=== PATIENT | female | born 1950 | race Caucasian/White ===

== ENCOUNTER → 2016-02-19 | Outpatient (CLI) | payer OTHER ==
--- NOTE | 2016-02-19 10:47 | MA ---
Screening Digital Mammogram With Tomosynthesis and iCAD Indication: Routine screening. Technique: Standard digital CC projections were obtained. Digital breast tomosynthesis was performed in the MLO projection with reconstruction at 1.0 mm slice thickness. Composite MLO views were recons tructed. This examination was processed by the iCAD computer-aided detection system. Comparison: November 2014, September 2013, August 2012, and February 2010. Breast density: Type B. Findings: CAD was reviewed. No suspicious microcalcifications, mass, or architectural distortion. Impression: Negative mammogram. BI-RADS 1. Recommendation: Routine screening is recommended in one year. [facility] will send a result letter to the patient. Negative mammography should not preclude additional workup of a clinically suspicious finding. The patient's information is entered into a reminder system with a target due date for her next mammo gram.
== END ==
LOC: FIMAGING 09:56
DX: Z12.31 Encounter for screening mammogram for malignant neoplasm of breast (principal)
CPT/HCPCS: G0202

== ENCOUNTER → 2016-02-20 | Outpatient (CLI) | payer OTHER ==
--- NOTE | 2016-02-20 14:49 | MR ---
MR Arteriogram of the [place] Clinical Indications: Right sided tinnitus in a 65-year-old female; evaluate for vascular abnormality . Comparison is made to the MRI of the brain performed November 22, 2015. Technique: A [id number] gradient echo technique was used for thin axial images at the skull base for evaluation of major vessels of the [place]. Three-dimensional technique was used with a 30-degree gradient echo flip angle and a traveling saturation band. Images were manipulated by the radiologist at the computer workstation. Findings: Major vessels of the [place] are adequately displayed, demonstrating no evidence of aneurysm, vascular malformation, flow-limiting stenosis, or occlusion. No abnormality is seen ref erable to the right temporal bone or right cerebellopontine angle. Review of the prior MRI of the bra in demonstrates normal appearance of the cerebellopontine angles bilaterally. The right internal emmanuel tory canal is well visualized and normal in appearance on the unenhanced MRI study. Impression: Negative MRA of the [place] with no abnormality identified to explain right-sarah ed tinnitus.
== END ==
LOC: FIMAGING 07:39
PROVIDERS: ATTEND Otolaryngology
DX: H93.11 Tinnitus, right ear (principal)

== ENCOUNTER → 2016-07-10 | Outpatient (CLI) | payer OTHER | LOC: BHFA 14:30 | PROVIDERS: ATTEND Internal Medicine Cardiovascular Disease | DX: I47.1 Supraventricular tachycardia (principal) ==

== ENCOUNTER → 2017-02-26 | Outpatient (CLI) | payer OTHER ==
[~2017-02-26] MED LIST: LIDOCAINE 1% 300 MG/30 ML SDV ONE
== END ==
LOC: EDSEX → EDBD → FIMAGING 07:23 → EDSEX 07:23
PROVIDERS: ATTEND Internal Medicine
DX: Z12.31 Encounter for screening mammogram for malignant neoplasm of breast (principal)

== ENCOUNTER → 2017-08-13 | Outpatient (CLI) | payer OTHER | DX: I47.1 Supraventricular tachycardia (principal); Z79.899 Other long term (current) drug therapy ==

== ENCOUNTER → 2018-01-24 | Outpatient (CLI) | payer OTHER | LOC: FIMAGING 15:11 | PROVIDERS: ATTEND Physical Medicine & Rehabilitation | DX: M50.321 Other cervical disc degeneration at C4-C5 level (principal); M50.322 Other cervical disc degeneration at C5-C6 level; M50.323 Other cervical disc degeneration at C6-C7 level; M99.71 Connective tissue and disc stenosis of intervertebral foramina of cervical region; M12.88 Other specific arthropathies, not elsewhere classified, other specified site; M48.02 Spinal stenosis, cervical region ==

== ENCOUNTER → 2018-03-01 | Outpatient (CLI) | payer OTHER | LOC: FIMAGING 07:45 | PROVIDERS: ATTEND Internal Medicine | DX: Z12.31 Encounter for screening mammogram for malignant neoplasm of breast (principal) ==

== ENCOUNTER 2018-06-04 10:52 | Emergency (ER) | payer OTHER ==
[2018-06-04 11:03] VITALS: BP 149/82
== END 2018-06-04 11:07 | disposition left against medical advice (07) ==
DX: Z53.21 Procedure and treatment not carried out due to patient leaving prior to being seen by health care provider (principal)

== ENCOUNTER 2018-07-12 09:15 | Emergency (ER) | payer OTHER | END 2018-07-12 11:10 | disposition home or self-care (01) ==

== ENCOUNTER → 2018-07-20 | Outpatient (CLI) | payer OTHER | LOC: FIMAGING 07:53 ==